=== PATIENT | female | born 1975 | race Caucasian/White ===

== ENCOUNTER 2021-12-24 22:44 | Emergency (ER) | payer OTHER ==
[~2021-12-24] VITALS: Ht 154.9 cm; Wt 68.0 kg
[2021-12-25] MEDS ORDERED: KETOROLAC TROMETH 30 MG/ML 1ML VIAL IM ONE (01:00)
[2021-12-25 01:49] VITALS: BP 104/74
== END 2021-12-25 03:22 | disposition home or self-care (01) ==
LOC: ER 22:44
DX: M79.89 Other specified soft tissue disorders (principal)
CPT/HCPCS: 73130; 96372; 99283; J1885